=== PATIENT | female | born 1955 | race Caucasian/White ===

== ENCOUNTER → 2017-07-04 | Outpatient (CLI) | payer OTHER ==
--- NOTE | 2017-07-04 18:15 | WWHP ---
[facility] - HISTORY AND PHYSICAL DATE OF DICTATION: 07/04/2017 CHIEF COMPLAINT: The patient is here for her routine gynecologic exam and mammogram. HISTORY OF PRESENT ILLNESS: This is a 62-year-old with an LMP of 2007. The patient is without gynecologic complaints and denies any postmenopausal bleeding. PAST MEDICAL HISTORY: 1. Osteoporosis since 2003 and was on Fosamax for about 4 years until 2008 and did resume Fosamax use in June 2016. 2. History of elevated cholesterol. MEDICATIONS: 1. Multivitamin daily. 2. Calcium supplement with vitamin D one daily. 3. Fosamax 70 mg weekly. ALLERGIES: PENICILLIN. PAST SURGICAL HISTORY: 1. tubal sterilization in the past. 2. Colonoscopy 2014. 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 FAMILY HISTORY: Aunt had breast cancer. SOCIAL HISTORY: She quit smoking in 2007 and has 1 to 2 alcohol-containing drinks per month. She denies any drug use. 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 She is a . REVIEW OF SYSTEMS: She has gained 4 pounds over the last year. She denies respiratory, cardiac or GI problems. PHYSICAL EXAMINATION: Blood pressure 104/67, height 5 feet 1 inch, weight 129 pounds. BMI 24. Temperature 98.0, pulse 73. This is a well-developed, well-nourished white female who is alert and oriented x3, in no acute distress. HEENT is within normal limits. NECK: Supple without mass or thyromegaly. CHEST AND LUNGS: Clear to auscultation. HEART: Regular rate and rhythm. Breasts are without mass or discharge. Axillary exam is negative for adenopathy, back negative for CVA tenderness. ABDOMEN: Soft, nontender, without palpable masses. PELVIC EXAM: External genitalia reveal mild to moderate atrophy without lesions. Cervix and vagina reveal mild atrophy without lesions. There is no evidence of prolapse. The uterus is mid position, nongravid size and nontender. There are no palpable adnexal masses or tenderness. Rectovaginal exam is negative for mass or tenderness and is negative for occult blood. Extremities are nontender. IMPRESSION: 1. Wrisf-fie-itxa-old menopausal female with normal gynecologic exam. 2. History of osteoporosis. She restarted Fosamax about 1 year ago. PLAN: 1. Pap smear was performed. 2. Self breast examination was discussed. 3. Mammogram will be done today. 4. We discussed osteoporosis management. I have stressed the importance of adequate calcium, vitamin D and exercise. A handout was given to the patient about this. She will continue Fosamax 70 mg weekly, and a prescription for the upcoming year was given to the patient. 5. I have recommended that she increase her vitamin D intake from the amount in her calcium supplement to 2000 units daily. We have also discussed the recommended amount of calcium of 1200 to 1500 mg daily and I recommended that she try to do this mostly through her diet. 6. She will return in one year, and at that time we will plan on repeating the bone density testing. MMCARMELOL / IJN: [id number] /
--- NOTE | 2017-07-05 10:44 | MM ---
Reason for exam: screening (asymptomatic). Last mammogram was performed 1 year and 1 month ago. History: Patient is postmenopausal. Family history of breast cancer in aunt. Physical Findings: A clinical breast exam by your physician is recommended on an annual basis and results should be correlated with mammographic findings. MG Screening Mammo w CAD Bilateral CC and MLO view(s) were taken. Prior study comparison: June 08, 2016, bilateral MG screening mammo w CAD. June 02, 2015, bilateral MG screening mammo w CAD. The breast tissue is heterogeneously dense. This may lower the sensitivity of mammography. Left CC view appears most similar to . No significant changes when compared with prior studies. ASSESSMENT: Negative, BI-RAD 1 RECOMMENDATION: Routine screening mammogram of both breasts in 1 year.
== END | disposition home or self-care (01) ==
LOC: WWCWWP 15:53
PROVIDERS: ATTEND Obstetrics & Gynecology
DX: Z12.31 Encounter for screening mammogram for malignant neoplasm of breast (principal)
CPT/HCPCS: 77067

== ENCOUNTER → 2018-07-10 | Outpatient (CLI) | payer OTHER ==
[2018-07-10 16:09] VITALS: BP 126/71; PULSE 54; RESP 16; TEMP 97.6; BMI 25.0
--- NOTE | 2018-07-10 17:11 | P.HPOB ---
History of Present Illness H&P Date: 07/10/18 Chief Complaint: The patient is here for her routine gynecologic exam and mammogram. This is a 63-year-old G2 PII with an LMP of 2007. The patient is without gynecologic complaints and denies any postmenopausal bleeding. Review of Systems The patient's weight has been stable over the last year. She denies respiratory , cardiac, or G.I. problems. Past Medical History Past Medical History: No Reported History, Hyperlipidemia Additional Past Medical History / Comment(s): Osteoporosis status post 5 years use of Fosamax ending in 2008, then restarted June 2016. 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 History of Any Multi-Drug Resistant Organisms: None Reported Past Surgical History: Tubal Ligation Additional Past Surgical History / Comment(s): Colonoscopy 2014(next 10yrs per pt). Past Psychological History: No Psychological Hx Reported Smoking Status: Former smoker (Quit 2007) Past Alcohol Use History: Occasional (2 per month) Past Drug Use History: None Reported Additional History: She is a . She is not seeing anybody at this time. 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 - Past Family History Mother Family Medical History: No Reported History Additional Family Medical History / Comment(s): Aunt had breast cancer. Medications and Allergies Home Medications Medication Instructions Recorded Confirmed Type Alendronate Sodium [Fosamax] 70 mg PO WEEKLY 07/10/18 07/10/18 History Multivit with Calcium,Iron,Min 1 each PO DAILY 07/10/18 07/10/18 History [Women's Multivitamin] Allergies Allergy/AdvReac Type Severity Reaction Status Date / Time No Known Allergies Allergy Unverified 07/10/18 16:09 Exam Vital Signs Temp Pulse Resp BP Pulse Ox 07/10/18 16:02 97.6 F 54 L 16 126/71 98 Height 5'0", weight 128 pounds, BMI 25. This is a well-developed well-nourished white female who is alert and oriented times 3 in no acute distress. HEENT: Within normal limits. NECK: Supple without mass or thyromegaly. CHEST AND LUNGS: Clear to auscultation. HEART: Regular rate and rhythm. BREASTS: Are without mass or discharge. AXILLARY EXAM: Negative for adenopathy. BACK: Negative for CVA tenderness. ABDOMEN: Soft, nontender, without palpable masses. PELVIC EXAM: Normal external genitalia with mild to moderate atrophy. Cervix and vagina appear normal with mild to moderate atrophy. There is no unusual discharge. There is no evidence of prolapse. The uterus is midposition, nongravid size and nontender. There are no palpable adnexal masses or tenderness. RECTAL EXAM: rectovaginal exam is negative for mass or tenderness and is negative for occult blood. EXTREMITIES: Nontender. IMPRESSION: 1. 63 year old menopausal female with normal gynecologic exam. 2. Osteoporosis with history of 5 years use of Fosamax between 2003 and 2008, then Fosamax was restarted in June 2016. PLAN: 1. Pap smear was deferred since she had a normal one less than 2 years ago. 2. Self breast awareness was discussed with the patient. 3. Screening mammogram was done today. 4. Osteoporosis management was discussed. I have stressed the importance of adequate calcium, vitamin D and regular exercise. Recommended amounts of calcium and vitamin D were also discussed. She will continue Fosamax. The electronic prescription will be sent to [facility]. 5. She will return in one year.
--- NOTE | 2018-07-11 07:54 | BD ---
EXAMINATION TYPE: Axial Bone Density DATE OF EXAM: 07/10/2018 COMPARISON: 2016 CLINICAL HISTORY: post menopausal Height: 5' Weight: 128 FRAX RISK QUESTIONS: Secondary Osteoporosis: RISK FACTORS HISTORY OF: Family History of Osteoporosis: y Postmenopausal woman: y MEDICATIONS: Osteoporosis Medications: Which medication: Fosamax How Lon years Additional Medications: Additional History: EXAM MEASUREMENTS: Bone mineral densitometry was performed using the locr System. Bone mineral density as measured about the Lumbar spine is: ----- L1-L4(G/cm2): .0741 T Score Values are as follows: ----- L2: -4.2 ----- L3: -4.2 ----- L4: -2.4 ----- L1-L4: -3.7 Bone mineral density has: Increased 16.0 % since study of: 07/31/2015 Bone mineral density about the R hip (g/cm2): 0.708 Bone mineral density about the L hip (g/cm2): 0.746 T Score values are as follows: -----R Neck: -2.4 -----L Neck: -2.1 -----R Total: -1.8 -----L Total: -1.8 Bone mineral density has: Increased 3.2% since study of: 07/31/2015 IMPRESSION: Osteoporosis lumbar spine. Osteopenia bilateral femora. NOTE: T-SCORE=SD OF THE YOUNG ADULT MEAN.
--- NOTE | 2018-07-14 10:06 | MM ---
Reason for exam: screening (asymptomatic). Last mammogram was performed 1 year ago. History: Patient is postmenopausal. Family history of breast cancer in aunt. MG Screening Mammo w CAD Bilateral CC and MLO view(s) were taken. Prior study comparison: July 04, 2017, bilateral MG screening mammo w CAD. June 08, 2016, bilateral MG screening mammo w CAD. The breast tissue is heterogeneously dense. This may lower the sensitivity of mammography. No discrete abnormality. No significant changes when compared with prior studies. ASSESSMENT: Negative, BI-RAD 1 RECOMMENDATION: Routine screening mammogram of both breasts in 1 year.
--- NOTE | 2018-07-18 12:59 | P.PN ---
Progress Note - Text Progress Note Date: 07/18/18 OUTPATIENT FOLLOW-UP NOTE TEST(S)/RESULTS: test results from 07/10/2018 include benign mammogram and bone density test showing osteoporosis in the lumbar spine with bone density improvement of 16% in the spine and 3.2% increase in the hips. METHOD OF NOTIFICATION: the patient was notified by phone. PATIENT COMMENTS: the patient is happy to hear there was improvement in the bone density testing. DIAGNOSIS: osteoporosis with improvement on Fosamax. DISCUSSION: we will continue to have her take the Fosamax. I have also stressed the importance of getting adequate calcium, vitamin D and regular exercise. PLAN: we will plan on repeating the bone density test in 2 to 3 years. We will also consider discontinuing the Fosamax at that time.
== END | disposition home or self-care (01) ==
LOC: RADBDWWP 15:13
PROVIDERS: ATTEND Obstetrics & Gynecology
DX: Z12.31 Encounter for screening mammogram for malignant neoplasm of breast (principal); M85.851 Other specified disorders of bone density and structure, right thigh; M85.852 Other specified disorders of bone density and structure, left thigh; M81.0 Age-related osteoporosis without current pathological fracture; Z78.0 Asymptomatic menopausal state
CPT/HCPCS: 77067; 77080

== ENCOUNTER → 2019-07-16 | Outpatient (CLI) | payer OTHER ==
[2019-07-16 15:31] VITALS: BP 139/70; PULSE 60; RESP 16; TEMP 97.7
--- NOTE | 2019-07-16 16:14 | P.HPOB ---
History of Present Illness H&P Date: 07/16/19 Chief Complaint: The patient is here for her routine gynecologic exam and ma mmogram. This is a 64-year-old with an LMP of 2007. The patient is without gynecologic complaints and denies any postmenopausal bleeding. Review of Systems The patient's weight has been stable over the last year. She denies respiratory, cardiac, or G.I. problems. Past Medical History Past Medical History: No Reported History, Hyperlipidemia Additional Past Medical History / Comment(s): Osteoporosis status post 5 years use of Fosamax ending in 2008, then restarted June 2016. 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 History of Any Multi-Drug Resistant Organisms: None Reported Past Surgical History: Tubal Ligation Additional Past Surgical History / Comment(s): Colonoscopy 2014(next 10yrs per pt). Past Psychological History: No Psychological Hx Reported Smoking Status: Former smoker Past Alcohol Use History: Occasional (One per month) Additional Past Alcohol Use History / Comment(s): Quit smoking in 2007. Past Drug Use History: None Reported Additional History: She is a and is not seeing anybody at this time and is not sexually active. 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 - Past Family History Mother Family Medical History: No Reported History Additional Family Medical History / Comment(s): Aunt had breast cancer. Medications and Allergies Home Medications Medication Instructions Recorded Confirmed Type Alendronate Sodium [Fosamax] 70 mg PO WEEKLY #12 tablet 07/10/18 07/16/19 Rx Multivit with Calcium,Iron,Min 1 each PO DAILY 07/10/18 07/16/19 History [Women's Multivitamin] Calcium/Magnesium/Zinc 1 each PO DAILY 07/16/19 07/16/19 History [Zsfwkno-Wwwxkzalg-Qdxi Tablet] Cholecalciferol [Vitamin D3 (25 5,000 unit PO DAILY 07/16/19 07/16/19 History Mcg = 1000 Iu)] Vitamin B Complex 1 each PO DAILY 07/16/19 07/16/19 History Allergies Allergy/AdvReac Type Severity Reaction Status Date / Time macadamia nut oil Allergy Rash/Hives Unverified 07/16/19 15:25 Penicillins Allergy Rash/Hives Unverified 07/16/19 15:25 Exam Vital Signs Temp Pulse Resp BP Pulse Ox 07/16/19 15:27 97.7 F 60 16 139/70 100 Intake and Output 07/16/19 07/16/19 07/16/19 06:59 14:59 22:59 Other: Weight 57.153 kg Height 5 foot 1 inch, weight 126 pounds, BMI 23.8. This is a well-developed well-nourished white female who is alert and oriented times 3 in no acute distress. HEENT: Within normal limits. NECK: Supple without mass or thyromegaly. CHEST AND LUNGS: Clear to auscultation. HEART: Regular rate and rhythm. BREASTS: Are without mass or discharge. AXILLARY EXAM: Negative for adenopathy. BACK: Negative for CVA tenderness. ABDOMEN: Soft, nontender, without palpable masses. PELVIC EXAM: Normal external genitalia with mild to moderate atrophy. Cervix and vagina appear normal of mild atrophy. There is no unusual discharge. There is no evidence of prolapse. The uterus is midposition, nongravid size and nontender. There are no palpable adnexal masses or tenderness. RECTAL EXAM: Rectovaginal exam is negative for mass or tenderness and is negativ e for occult blood. EXTREMITIES: Nontender. IMPRESSION: 1. 64-year-old menopausal female with normal gynecologic exam. 2. History of osteoporosis status post 5 years use of Fosamax from 09/18, then Fosamax was restarted in 2017. PLAN: 1. Pap smear was performed. 2. Self breast awareness was discussed with the patient. 3. Screening mammogram will be done today. 4. Osteoporosis management was discussed. I have stressed the importance of adequate calcium, vitamin D and regular exercise. Recommended amounts of calcium and vitamin D were also discussed. She will continue on Fosamax. The electronic prescription will be sent to [facility]. We will plan on repeating the bone density test in 1-2 years since her last one was done in 2019. 5. She was advised to return in one year for her annual well woman exam.
--- NOTE | 2019-07-18 09:54 | MM ---
Reason for exam: screening (asymptomatic). Last mammogram was performed 1 year ago. History: Patient is postmenopausal. Family history of breast cancer in aunt. Physical Findings: A clinical breast exam by your physician is recommended on an annual basis and results should be correlated with mammographic findings. MG Screening Mammo w CAD Bilateral CC and MLO view(s) were taken. Prior study comparison: July 10, 2018, bilateral MG screening mammo w CAD. July 04, 2017, bilateral MG screening mammo w CAD. The breast tissue is heterogeneously dense. This may lower the sensitivity of mammography. No significant changes when compared with prior studies. ASSESSMENT: Negative, BI-RAD 1 RECOMMENDATION: Routine screening mammogram of both breasts in 1 year.
== END | disposition home or self-care (01) ==
LOC: WWCWWP 15:12
PROVIDERS: ATTEND Obstetrics & Gynecology
DX: Z12.31 Encounter for screening mammogram for malignant neoplasm of breast (principal)
CPT/HCPCS: 77067

== ENCOUNTER → 2020-09-01 | Outpatient (CLI) | payer OTHER ==
[2020-09-01 14:07] VITALS: BP 127/78; PULSE 79; RESP 18; TEMP 98.2
--- NOTE | 2020-09-01 15:09 | P.HPOB ---
History of Present Illness H&P Date: 09/01/20 Chief Complaint: The patient is here for her routine gynecologic exam and ma mmogram. This is a 65-year-old with an LMP of 2007. The patient is without gynecologic complaints. Review of Systems The patient's weight has been stable over the last year. She denies respiratory, cardiac, or G.I. problems. Past Medical History Past Medical History: Hyperlipidemia Additional Past Medical History / Comment(s): Osteoporosis status post 5 years use of Fosamax ending in 2008, then restarted June 2016. 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 History of Any Multi-Drug Resistant Organisms: None Reported Past Surgical History: Tubal Ligation Additional Past Surgical History / Comment(s): Colonoscopy 2014(next 10yrs per pt). Past Psychological History: No Psychological Hx Reported Smoking Status: Former smoker Past Alcohol Use History: Rare (6 per year) Additional Past Alcohol Use History / Comment(s): Quit smoking in 2007. Past Drug Use History: None Reported Additional History: She is a and is not seeing anybody at this time and is not sexually active. 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 - Past Family History Mother Family Medical History: No Reported History Additional Family Medical History / Comment(s): Aunt had breast cancer. Medications and Allergies Home Medications Medication Instructions Recorded Confirmed Type Multivit with Calcium,Iron,Min 1 each PO DAILY 07/10/18 09/01/20 History [Women's Multivitamin] Alendronate Sodium [Fosamax] 70 mg PO WEEKLY #12 tablet 07/16/19 09/01/20 Rx Calcium/Magnesium/Zinc 1 each PO DAILY 07/16/19 09/01/20 History [Wkoejpx-Kugoigvwt-Kqkt Tablet] Cholecalciferol [Vitamin D3 (25 5,000 unit PO DAILY 07/16/19 09/01/20 History Mcg = 1000 Iu)] Vitamin B Complex 1 each PO DAILY 07/16/19 09/01/20 History [place]-3 Fatty Acids/Fish Oil [Fish 1 each PO DAILY 09/01/20 09/01/20 History Oil 1,000 mg Softgel] Allergies Allergy/AdvReac Type Severity Reaction Status Date / Time macadamia nut oil Allergy Rash/Hives Unverified 09/01/20 14:03 Penicillins Allergy Rash/Hives Unverified 09/01/20 14:03 Exam Vital Signs Temp Pulse Resp BP Pulse Ox 09/01/20 14:05 98.2 F 79 18 127/78 99 Intake and Output 09/01/20 09/01/20 09/01/20 06:59 14:59 22:59 Other: Weight 56.245 kg Height 5 foot 1 inch, weight 124 pounds, BMI 23.4. This is a well-developed well-nourished white female who is alert and oriented times 3 in no acute distress. HEENT: Within normal limits. NECK: Supple without mass or thyromegaly. CHEST AND LUNGS: Clear to auscultation. HEART: Regular rate and rhythm. BREASTS: Are without mass or discharge. AXILLARY EXAM: Negative for adenopathy. BACK: Negative for CVA tenderness. ABDOMEN: Soft, nontender, without palpable masses. PELVIC EXAM: Normal external genitalia with mild atrophy. Cervix and vagina appear normal with mild atrophy. There is no unusual discharge. There is no evidence of prolapse. The uterus is midposition, nongravid size and nontender. There are no palpable adnexal masses or tenderness. RECTAL EXAM: rectovaginal exam is negative for mass or tenderness and is negative for occult blood. EXTREMITIES: Nontender. IMPRESSION: 1. 65-year-old menopausal female with normal gynecologic exam. 2. History of osteoporosis status post 5 years use of Fosamax from [id number], then Fosamax was restarted in 2017. PLAN: 1. Pap smear was deferred since she had a normal one on 07/16/2019. 2. Self breast awareness was discussed with the patient. 3. Screening mammogram will be done today. 4. Osteoporosis management was discussed. I have stressed the importance of adequate calcium, vitamin D and regular exercise. Recommended amounts of calcium and vitamin D were also discussed. She will continue to take Fosamax weekly at this time. The electronic prescription will be sent to [facility]. I have recommended that she repeat bone density testing this year and the order slip was given to the patient for this. We will reevaluate whether we can discontinue Fosamax after the bone density testing. 5. She was advised to return in one year for her annual well woman exam.
--- NOTE | 2020-09-02 10:29 | MM ---
Reason for exam: screening (asymptomatic). Last mammogram was performed 1 year and 2 months ago. History: Patient is postmenopausal. Family history of breast cancer in aunt. Physical Findings: A clinical breast exam by your physician is recommended on an annual basis and results should be correlated with mammographic findings. MG Screening Mammo w CAD Bilateral CC and MLO view(s) were taken. Prior study comparison: July 16, 2019, bilateral MG screening mammo w CAD. July 10, 2018, bilateral MG screening mammo w CAD. The breast tissue is heterogeneously dense. This may lower the sensitivity of mammography. There is no discrete abnormality. ASSESSMENT: Negative, BI-RAD 1 RECOMMENDATION: Routine screening mammogram of both breasts in 1 year.
== END | disposition home or self-care (01) ==
LOC: WWCWWP 13:44
PROVIDERS: ATTEND Obstetrics & Gynecology
DX: Z12.31 Encounter for screening mammogram for malignant neoplasm of breast (principal)
CPT/HCPCS: 77067

== ENCOUNTER → 2020-11-04 | Outpatient (CLI) | payer OTHER ==
--- NOTE | 2020-11-04 16:43 | US ---
EXAMINATION TYPE: US thyroid st tissue head/neck DATE OF EXAM: 11/04/2020 COMPARISON: NONE CLINICAL HISTORY: I88.9 Nonspecific lymphadenitis, unspecified. Patient states right side of the neck swelling intermittently after eating. Right neck not swollen at time of scan. Area of concern was sonographically evaluated. Submandibular gland visualized. No prominent masses or lesions seen. No enlarged lymph nodes in area of concern. Contralateral images taken. IMPRESSION: 1. No evidence of cyst or mass or fluid collection at the site of patient's right cervical swelling. The right submandibular gland is seen in this region.
== END | disposition home or self-care (01) ==
LOC: RADUSWWP 13:28
PROVIDERS: ATTEND Family Medicine
DX: I88.9 Nonspecific lymphadenitis, unspecified (principal)
CPT/HCPCS: 76536

== ENCOUNTER → 2021-01-01 | Outpatient (CLI) | payer MEDICARE, BC ==
--- NOTE | 2021-01-01 15:22 | FL ---
EXAMINATION TYPE: FL sialography DATE OF EXAM: 01/01/2021 COMPARISON: Ultrasound thyroid 11/04/2020 HISTORY: Right submandibular swelling The procedure is discussed with the patient, the risks, complications, benefits and alternatives, wer e discussed and any questions were answered. Informed consent was obtained. The patient is placed s upine on the fluoroscopic table, prepped and draped in the usual sterile fashion. The ostium of the right submandibular duct appear to be somewhat small relative to the left. There is difficulty in cannulation of the duct. Small amount contrast was seen which demonstrated what appear ed to be a slightly narrowed proximal portion the submandibular duct. Distally could not be visualize d well. 48 seconds of fluoroscopy provided and 5 images submitted. Due to fluoroscopic technique and difficul ties image could not be obtained. Images were only seen fluoroscopically. IMPRESSION: 1. Limited exam demonstrates suspected mild narrowing at the ostium of the right submandibular duct. Mid and distal portion of the duct not well seen.
== END | disposition home or self-care (01) ==
LOC: RADXRMAIN 12:55
PROVIDERS: ATTEND Otolaryngology
DX: R22.1 Localized swelling, mass and lump, neck (principal)
CPT/HCPCS: 70390; Q9967

== ENCOUNTER → 2021-09-07 | Outpatient (CLI) | payer MEDICARE, BC ==
[2021-09-07 15:27] VITALS: BP 122/76; PULSE 62; RESP 18; TEMP 97.9
--- NOTE | 2021-09-07 16:32 | P.HPOB ---
History of Present Illness H&P Date: 09/07/21 Chief Complaint: The patient is here for her routine gynecologic exam and ma mmogram. This is a 66-year-old with an LMP of 2007. The patient is without gynecologic complaints and denies any postmenopausal bleeding. Review of Systems The patient has gained 4 pounds over the last year. She denies respiratory, cardiac, or G.I. problems. Past Medical History Past Medical History: Hyperlipidemia Additional Past Medical History / Comment(s): Osteoporosis status post 5 years use of Fosamax ending in 2008, then restarted June 2016. 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 History of Any Multi-Drug Resistant Organisms: None Reported Past Surgical History: Tubal Ligation Additional Past Surgical History / Comment(s): Colonoscopy 2014(next 10yrs per pt). Past Psychological History: No Psychological Hx Reported Smoking Status: Former smoker Past Alcohol Use History: Rare (5 per year) Additional Past Alcohol Use History / Comment(s): Quit smoking in 2007. Past Drug Use History: None Reported Additional History: She is a and is not seeing anybody at this time and is not sexually active. 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 - Past Family History Mother Family Medical History: No Reported History Additional Family Medical History / Comment(s): Aunt had breast cancer. Medications and Allergies Home Medications Medication Instructions Recorded Confirmed Type Multivit with Calcium,Iron,Min 1 each PO DAILY 07/10/18 09/07/21 History [Women's Multivitamin] Calcium/Magnesium/Zinc 1 each PO DAILY 07/16/19 09/07/21 History [Ynrzpqj-Qesmgytwh-Bfwn Tablet] Cholecalciferol [Vitamin D3 (25 5,000 unit PO DAILY 07/16/19 09/07/21 History Mcg = 1000 Iu)] Vitamin B Complex 1 each PO DAILY 07/16/19 09/07/21 History Alendronate Sodium [Fosamax] 70 mg PO WEEKLY #12 tablet 09/01/20 09/07/21 Rx [place]-3 Fatty Acids/Fish Oil [Fish 1 each PO DAILY 09/01/20 09/07/21 History Oil 1,000 mg Softgel] Allergies Allergy/AdvReac Type Severity Reaction Status Date / Time macadamia nut oil Allergy Rash/Hives Unverified 03/22/22 15:18 Penicillins Allergy Rash/Hives Unverified 09/07/21 15:18 Exam Vital Signs Temp Pulse Resp BP Pulse Ox 09/07/21 15:23 97.9 F 62 18 122/76 100 Intake and Output 09/07/21 09/07/21 09/07/21 06:59 14:59 22:59 Other: Weight 58.06 kg Height 5 feet 1 inch, weight 128 pounds, BMI 24.2. This is a well-developed well-nourished white female who is alert and oriented times 3 in no acute distress. HEENT: Within normal limits. NECK: Supple without mass or thyromegaly. CHEST AND LUNGS: Clear to auscultation. HEART: Regular rate and rhythm. BREASTS: Are without mass or discharge. AXILLARY EXAM: Negative for adenopathy. BACK: Negative for CVA tenderness. ABDOMEN: Soft, nontender, without palpable masses. PELVIC EXAM: Normal external genitalia with mild to moderate atrophy. Cervix and vagina appear normal with mild to moderate atrophy. There is no unusual discharge. There is no evidence of prolapse. The uterus is midposition, nongravid size and nontender. There are no palpable adnexal masses or tenderne ss. RECTAL EXAM: Rectovaginal exam is negative for mass or tenderness and is negative for occult blood. EXTREMITIES: Nontender. IMPRESSION: 1. 66-year-old menopausal female with normal gynecologic exam. 2. History of osteoporosis and has been on Fosamax for the last 5 years and this is her second course. PLAN: 1. Pap smear was performed. If this is negative we will plan on discontinuing Pap smears. 2. Self breast awareness was discussed with the patient. We have also discussed symptoms associated with inflammatory breast cancer. 3. Screening mammogram will be done today. 4. Osteoporosis management was discussed. I have stressed the importance of adequate calcium, vitamin D and regular exercise. Recommended amounts of calcium and vitamin D were also discussed. She is scheduled for bone density test in October of this year. The order slip was given to the patient for this. If this remains stable, we will plan on discontinuing the alendronate since this has been about 5 years use for this course of medication. The electronic prescription for the alendronate will be sent to [facility] so the patient so she can continue this until the time when we decide she will discontinue it. 5. She has not received a Covid vaccination. She understands the CDC recommends that she get a Covid vaccination. She will consider this. 6. The patient was advised to return in 1 year for her well woman examination.
== END ==
LOC: WWCWWP 15:07
PROVIDERS: ATTEND Obstetrics & Gynecology
DX: Z12.31 Encounter for screening mammogram for malignant neoplasm of breast (principal); Z01.419 Encounter for gynecological examination (general) (routine) without abnormal findings; M81.0 Age-related osteoporosis without current pathological fracture; E78.5 Hyperlipidemia, unspecified; Z87.891 Personal history of nicotine dependence; Z80.3 Family history of malignant neoplasm of breast; Z78.0 Asymptomatic menopausal state; Z88.0 Allergy status to penicillin
CPT/HCPCS: 77063; 77067

== ENCOUNTER → 2021-10-26 | Outpatient (CLI) | payer MEDICARE, BC ==
--- NOTE | 2021-10-26 22:28 | BD ---
EXAMINATION TYPE: Axial Bone Density DATE OF EXAM: 10/26/2021 CLINICAL HISTORY: 66 years year old Female. ICD-10 CODE: Z78.0 Postmenopausal status, M81.0 Known os teoporosis Height: 5 FT Weight: 126 FRAX RISK QUESTIONS: Alcohol (3 or more units per day): NO Family History (Parent hip fracture): YES Glucocorticoids (More than 3mos): NO (Ex: prednisone, prednisolone, methylprednisolone, dexamethasone, and hydrocortisone). History of Fracture in Adulthood: NO Secondary Osteoporosis: 1. Type 1 Diabetes: NO 2. Hyperthyroidism: NO 3. Menopause before 45: NO 4. Malnutrition: NO 5. Chronic liver disease: NO Rheumatoid Arthritis: NO Current Tobacco Use: NO RISK FACTORS HISTORY OF: Surgery to Spine/Hip(right/left)/Wrist (right/left): NO Family History of Osteoporosis: YES Active: YES Diet low in dairy products/other sources of calcium: NO Postmenopausal woman: YES Take estrogen and/or progesterone medications: NO Lost more than 2 inches in height since high school: NO Frequent falls: NO Poor Health: GOOD Hyperparathyroidism: NO Adrenal Insufficiency: NO MEDICATIONS: Osteoporosis Medications: YES Which medication: FOSAMAX How Long: APPROX 5 YEARS Additional Medications: FOSAMAX Additional History: EXAM MEASUREMENTS: Bone mineral densitometry was performed using the [employer]. Bone mineral density as measured about the Lumbar spine is: ----- L1-L4(G/cm2): 0.714 T Score Values are as follows: ----- L1: -4.6 ----- L2: -4.5 ----- L3: -4.1 ----- L4: -2.8 ----- L1-L4: -3.9 Bone mineral density has: DECREASED -3.1 % since study of: 2018 Bone mineral density about the R hip (g/cm2): 0.706 Bone mineral density about the L hip (g/cm2): 0.738 T Score values are as follows: -----R Neck: -2.4 -----L Neck: -2.2 -----R Total: -2.1 -----L Total: -2.0 Bone mineral density has: DECREASED -3.6 % since study of: 2018 FRAX%s: The graph provided illustrates a 13.0 % chance for a major osteoporotic fx and a 2.7 % chance for the hips probability for fx in 10 years time. IMPRESSION: Osteoporosis (T Score less than -2.5). There is increased fracture risk and therapy is usually indicated based on age. Re-Screen 1-2 years. NOTE: T-SCORE=SD OF THE YOUNG ADULT MEAN.
--- NOTE | 2021-10-27 11:23 | P.PN ---
Progress Note - Text Progress Note Date: 10/27/21 OUTPATIENT FOLLOW-UP NOTE TEST(S)/RESULTS: Bone density test done on 10/26/2021 showed osteoporosis with a slight decrease in the lumbar spine measurements. METHOD OF NOTIFICATION: A message with this result was left on the patient's voicemail. PATIENT COMMENTS: DIAGNOSIS: Osteoporosis with slight worsening in the lumbar spine measurements on Fosamax. DISCUSSION: I will call the patient back when I am back in the office next week. We will then be of discussed options. Treatment with different medication may be considered since she has completed the another course of Fosamax for 5 years without significant improvement in the lumbar spine. PLAN: As above.
== END | disposition home or self-care (01) ==
LOC: RADBDWWP 15:55
PROVIDERS: ATTEND Obstetrics & Gynecology
DX: M81.0 Age-related osteoporosis without current pathological fracture (principal); Z78.0 Asymptomatic menopausal state
CPT/HCPCS: 77080

== ENCOUNTER → 2022-09-13 | Outpatient (CLI) | payer MEDICARE ==
[2022-09-13 09:16] VITALS: BP 158/66; PULSE 58; RESP 16; TEMP 97.9
--- NOTE | 2022-09-13 10:09 | P.HPOB ---
History of Present Illness H&P Date: 09/13/22 Chief Complaint: The patient is here for her routine gynecologic exam and ma mmogram. This is a 67-year-old with an LMP of 2007. The patient is without gynecologic complaints. Review of Systems The patient's weight has been stable over the last year. She denies respiratory, cardiac, or G.I. problems. Past Medical History Past Medical History: Hyperlipidemia Additional Past Medical History / Comment(s): Osteoporosis status post 5 years use of Fosamax ending in 2008, then restarted June 2016. 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 History of Any Multi-Drug Resistant Organisms: None Reported Past Surgical History: Tubal Ligation Additional Past Surgical History / Comment(s): Colonoscopy 2014(next 10yrs per pt). Past Psychological History: No Psychological Hx Reported Smoking Status: Former smoker Past Alcohol Use History: Rare (4 per year) Additional Past Alcohol Use History / Comment(s): Quit smoking in 2007. Past Drug Use History: None Reported Additional History: She is a and is not sexually active. 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 Medications and Allergies Home Medications Medication Instructions Recorded Confirmed Type Multivit with Calcium,Iron,Min 1 each PO DAILY 07/10/18 09/13/22 History [Women's Multivitamin] Calcium/Magnesium/Zinc 1 each PO DAILY 07/16/19 09/13/22 History [Gxkdzqa-Cswzmpbrz-Npsw Tablet] Cholecalciferol [Vitamin D3 (25 5,000 unit PO DAILY 07/16/19 09/13/22 History Mcg = 1000 Iu)] Vitamin B Complex 1 each PO DAILY 07/16/19 09/13/22 History Alendronate Sodium [Fosamax] 70 mg PO WEEKLY #12 tablet 09/01/20 09/13/22 Rx [place]-3 Fatty Acids/Fish Oil [Fish 1 each PO DAILY 09/01/20 09/13/22 History Oil 1,000 mg Softgel] Allergies Allergy/AdvReac Type Severity Reaction Status Date / Time macadamia nut oil Allergy Rash/Hives Unverified 09/13/22 09:12 Penicillins Allergy Rash/Hives Unverified 09/13/22 09:12 Exam Vital Signs Temp Pulse Resp BP Pulse Ox 09/13/22 09:13 97.9 F 58 L 16 158/66 100 Intake and Output 09/12/22 09/13/22 09/13/22 22:59 06:59 14:59 Other: Weight 58.06 kg Height 5 foot 1 inch, weight 128 pounds, BMI 24.2. This is a well-developed well-nourished white female who is alert and oriented times 3 in no acute distress. HEENT: Within normal limits. NECK: Supple without mass or thyromegaly. CHEST AND LUNGS: Clear to auscultation. HEART: Regular rate and rhythm. BREASTS: Are without mass or discharge. AXILLARY EXAM: Negative for adenopathy. BACK: Negative for CVA tenderness. ABDOMEN: Soft, nontender, without palpable masses. PELVIC EXAM: Normal external genitalia with moderate atrophy. Cervix and vagina appear normal with mild to moderate atrophy. There is no unusual discharge. There is no evidence of prolapse. The uterus is midposition, nongravid size and nontender. There are no palpable adnexal masses or tenderness. RECTAL EXAM: Rectovaginal exam is negative for mass or tenderness and is nega tive for occult blood. EXTREMITIES: Nontender. IMPRESSION: 1. 67-year-old menopausal female with normal gynecologic exam. 2. History of osteoporosis and has been on alendronate for the past 6 years. 3. Elevated blood pressure. PLAN: 1. Pap smears have been discontinued. 2. Self breast awareness was discussed with the patient. We have also discussed symptoms associated with inflammatory breast cancer. 3. Screening mammogram was done today. 4. Osteoporosis management was discussed. I have stressed the importance of adequate calcium, vitamin D and regular exercise. Recommended amounts of calcium and vitamin D were also discussed. With the severity of her vertebral bone density, we will continue alendronate until next year's bone density test at which time we will consider having a trial off. The electronic prescription for alendronate will be sent to [facility] pharmacy in [place]. 5. We have discussed her elevated blood pressure. I recommended that she check her own blood pressures at home since she does have a blood pressure cuff. She will follow up with her PCP for blood pressure elevations. 6. She was advised to return in one year for her annual well woman exam.
--- NOTE | 2022-09-14 09:43 | MM ---
Reason for Exam: Screening (asymptomatic). Last screening mammogram was performed 12 month(s) ago. Patient History: Menarche at age 13. First Full-Term at age 27. Postmenopausal. Maternal aunt had breast cancer, age 65. Risk Values: Basilia 5 year model risk: 1.9%. NCI Lifetime model risk: 6.7%. Prior Study Comparison: 07/16/2019 Bilateral Screening Mammogram, [facility]. 09/01/2020 Bilateral Screening Mammogram, [facility]. 09/07/2021 Bilateral Screening Mammogram, [facility]. Tissue Density: There are scattered fibroglandular densities. Findings: Analyzed By CAD. There is no suspicious group of microcalcifications or new suspicious mass in either breast. Overall Assessment: Negative, BI-RAD 1 Management: Screening Mammogram of both breasts in 1 year. A clinical breast exam by your physician is recommended on an annual basis and results should be correlated with mammographic findings. [facility] will attempt to contact patient to return for supplemental views and ultrasound if indicated. Electronically signed and approved by: Aristides Kenny DO
== END | disposition home or self-care (01) ==
LOC: RADMAMWWP 08:09
PROVIDERS: ATTEND Obstetrics & Gynecology
DX: Z12.31 Encounter for screening mammogram for malignant neoplasm of breast (principal); E78.5 Hyperlipidemia, unspecified; Z80.3 Family history of malignant neoplasm of breast; Z78.0 Asymptomatic menopausal state
CPT/HCPCS: 77063; 77067

== ENCOUNTER → 2023-03-27 | Outpatient (CLI) | payer MEDICARE ==
--- NOTE | 2023-03-27 20:40 | MR ---
EXAMINATION TYPE: MR brain wo con DATE OF EXAM: 03/27/2023 6:18 PM CLINICAL INDICATION:Female, 68 years old with history of G45.9 TRANSIENT CEREBRAL ISCHEMIC ATTACK, UN SPECIF; PHH, TIA, memory loss COMPARISON: None. TECHNIQUE: Multi planar, multi sequence imaging was performed through the brain including: T1, T2, In version recovery, Diffusion weighted imaging, and gradient echo imaging. No gadolinium was given. FINDINGS: Mild cerebral volume loss with proportional dilation of ventricles. The tenorio-white junctions, ventric ular system, and cisterns appear unremarkable. Scattered foci of high T2 signal intensity are seen w ithin the periventricular white matter. Midline structures show no abnormality. Diffusion-weighted im aging shows no evidence of restricted diffusion. The susceptibility weighted images do not reveal any evidence for micro-hemorrhage. The bone marrow signal is within normal limits. Paranasal sinuses and mastoid air cells: No significant paranasal sinus disease. Visualized orbits: Orbital contents are intact. IMPRESSION: 1. No evidence of intracranial mass or acute/subacute infarct. 2. Nonspecific white matter changes, likely secondary to small vessel ischemic disease.
== END | disposition home or self-care (01) ==
LOC: RADMRIMAIN 17:28
PROVIDERS: ATTEND Family Medicine
DX: G45.9 Transient cerebral ischemic attack, unspecified (principal); R90.82 White matter disease, unspecified; Z86.73 Personal history of transient ischemic attack (TIA), and cerebral infarction without residual deficits
CPT/HCPCS: 70551

== ENCOUNTER → 2023-10-31 | Outpatient (CLI) | payer MEDICARE ==
--- NOTE | 2023-10-31 20:46 | BD ---
EXAMINATION TYPE: Axial Bone Density DATE OF EXAM: 10/31/2023 CLINICAL HISTORY: 68 years old Female. ICD-10 CODE: M85.80 BONE DENSITY DISORDERS Height: 60 Weight: 130.4 FRAX RISK QUESTIONS: Alcohol (3 or more units per day): no Family History (Parent hip fracture): mother Glucocorticoids (More than 3mos): no (Ex: prednisone, prednisolone, methylprednisolone, dexamethasone, and hydrocortisone). History of Fracture in Adulthood: no Secondary Osteoporosis: 1. Type 1 Diabetes: no 2. Hyperthyroidism: no 3. Menopause before 45: no 4. Malnutrition: no 5. Chronic liver disease: no Rheumatoid Arthritis: no Current Tobacco Use: no RISK FACTORS HISTORY OF: Hip Fracture (Right/Left): no Spine Fracture: no History of Wrist Fracture: no Surgery to Spine/Hip(right/left)/Wrist (right/left): no MEDICATIONS: Thyroid Medications: no Osteoporosis Medications: fosamax once a week How Long: past 20 years EXAM MEASUREMENTS: Bone mineral densitometry was performed using the [employer] System. Bone mineral density as measured about the Lumbar spine is: ----- L1-L4(G/cm2): 0.706 T Score Values are as follows: ----- L1: -4.3 ----- L2: -4.5 ----- L3: -4.1 ----- L4: -3.3 ----- L1-L4: -4.0 Z Score Values are as follows: ----- L1: -2.4 ----- L2: -2.6 ----- L3: -2.2 ----- L4: -1.5 ----- L1-L4: -2.1 Bone mineral density has: decreased -1.1 % since study of: 10/26/2021 Bone mineral density about the R hip (g/cm2): 0.810 Bone mineral density about the L hip (g/cm2): 0.814 T Score values are as follows: -----R Neck: -1.9 -----L Neck: -1.7 -----R Total: -1.6 -----L Total: -1.5 Z Score values are as follows: -----R Neck: -0.2 -----L Neck: 0.0 -----R Total: 0.0 -----L Total: 0.0 Bone mineral density has: increased 8.6 % since study of: 10/26/2021 FRAX%s: The graph provided illustrates a 18.9 % chance for a major osteoporotic fx and a 2.9% chance for the hips probability for fx in 10 years time. IMPRESSION: Osteopenia (T Score between -2.5 and -1). There is slightly increased risk of fracture and the patient may be considered for treatment. Re-Screen 2-5 years. NOTE: T-SCORE=SD OF THE YOUNG ADULT MEAN.
--- NOTE | 2023-11-01 13:39 | P.PN ---
Progress Note - Text Progress Note Date: 11/01/23 OUTPATIENT FOLLOW-UP NOTE TEST(S)/RESULTS: Bone density test done on 10/31/2023 shows osteoporosis with improvement in the hip scores and minimal change from the lumbar spine measurements. METHOD OF NOTIFICATION: A message with these results was left on the patient's voicemail on 11/01/2023. PATIENT COMMENTS: DIAGNOSIS: Osteoporosis. DISCUSSION: I will call the patient back at a later time to confirm she has been taking her medications for her osteoporosis and to decide if changes should be m tristen. PLAN: As above. Mammogram from 10/31/2023 is pending
--- NOTE | 2023-11-01 19:20 | MM ---
Reason for Exam: Screening (asymptomatic). Last mammogram was performed 1 year(s) and 2 month(s) ago. Patient History: Menarche at age 13. First Full-Term at age 27. Postmenopausal. Maternal aunt had breast cancer, age 65. Risk Values: Basilia 5 year model risk: 1.9%. NCI Lifetime model risk: 6.4%. Prior Study Comparison: 09/01/2020 Bilateral Screening Mammogram, [facility]. 09/07/2021 Bilateral Screening Mammogram, [facility]. 09/13/2022 Bilateral MG 3D screening mammo w/cad, [facility]. Tissue Density: There are scattered areas of fibroglandular density. Findings: Analyzed By CAD. There is no suspicious group of microcalcifications or new suspicious mass in either breast. Overall Assessment: Negative, BI-RAD 1 Management: Screening Mammogram of both breasts in 1 year. . Patient should continue monthly self-breast exams. A clinical breast exam by your physician is recommended on an annual basis. This exam should not preclude additional follow-up of suspicious palpable abnormalities. Note on Basilia scores and lifetime risk: 1. A Basilia score greater than 3% is considered moderate risk. If this is the case, consider specialist referral to assess eligibility for a risk reducing agent. 2. If overall lifetime risk for the development of breast cancer is 20% or higher, the patient may qualify for future screening with alternating mammogram and breast MRI. Electronically signed and approved by: Rachna Crabtree M.D. Radiologist
== END | disposition home or self-care (01) ==
LOC: RADMAMWWP 14:37
PROVIDERS: ATTEND Obstetrics & Gynecology
DX: Z12.31 Encounter for screening mammogram for malignant neoplasm of breast (principal); M81.0 Age-related osteoporosis without current pathological fracture; M85.89 Other specified disorders of bone density and structure, multiple sites; Z78.0 Asymptomatic menopausal state; Z80.3 Family history of malignant neoplasm of breast
CPT/HCPCS: 77063; 77067; 77080

== ENCOUNTER → 2024-11-05 | Outpatient (CLI) | payer MEDICARE ==
[2024-11-05 08:29] VITALS: BP 141/59; PULSE 53; RESP 16; TEMP 98
--- NOTE | 2024-11-05 08:38 | P.HPOB ---
History of Present Illness H&P Date: 11/05/24 Chief Complaint: The patient is here for her routine gynecologic exam and ma mmogram. This is a 69-year-old G2, P2 with an LMP of 2007. The patient is without gynecologic complaints. The patient has used Fosamax or 2 separate courses each lasting 5 years. She stopped it in 2023. She was offered a referral to a osteoporosis specialist, Dr. Shaikh in [place], but she is declining this. Review of Systems The patient's weight has been stable over the last year. She denies respiratory, cardiac, or G.I. problems. Past Medical History Past Medical History: Hyperlipidemia Additional Past Medical History / Comment(s): Osteoporosis status post 5 years use of Fosamax ending in 2008, then restarted June 2016 for an additional 5 years. 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 History of Any Multi-Drug Resistant Organisms: None Reported Past Surgical History: Tubal Ligation Additional Past Surgical History / Comment(s): Colonoscopy 2014(next 10yrs per pt). Past Psychological History: No Psychological Hx Reported Smoking Status: Former smoker Past Alcohol Use History: Rare (1 drink per month.) Additional Past Alcohol Use History / Comment(s): Quit smoking in 2007. Past Drug Use History: None Reported Additional History: She is a and is not sexually active. She retired. 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 - Past Family History Mother Family Medical History: No Reported History Additional Family Medical History / Comment(s): Aunt had breast cancer. Medications and Allergies Home Medications Medication Instructions Recorded Confirmed Type Multivit with Calcium,Iron,Min 1 each PO DAILY 07/10/18 09/13/22 History [Women's Multivitamin] Calcium/Magnesium/Zinc 1 each PO DAILY 07/16/19 09/13/22 History [Heakdbp-Mlzhfszxh-Giub Tablet] Cholecalciferol [Vitamin D3 (25 5,000 unit PO DAILY 07/16/19 09/13/22 History Mcg = 1000 Iu)] Vitamin B Complex 1 each PO DAILY 07/16/19 09/13/22 History [place]-3 Fatty Acids/Fish Oil [Fish 1 each PO DAILY 09/01/20 09/13/22 History Oil 1,000 mg Softgel] Rosuvastatin [Crestor] 10 mg PO DAILY 11/05/24 11/05/24 History Allergies Allergy/AdvReac Type Severity Reaction Status Date / Time macadamia nut oil Allergy Rash/Hives Unverified 11/05/24 08:11 Penicillins Allergy Rash/Hives Unverified 11/05/24 08:11 Exam Vital Signs Temp Pulse Resp BP Pulse Ox 11/05/24 08:15 98 F 53 L 16 141/59 100 Intake and Output 11/04/24 11/05/24 11/05/24 22:59 06:59 14:59 Other: Weight 57.606 kg Height 5 feet 0 inches, weight 127 pounds, BMI 24.8. This is a well-developed well-nourished white female who is alert and oriented times 3 in no acute distress. HEENT: Within normal limits. NECK: Supple without mass or thyromegaly. CHEST AND LUNGS: Clear to auscultation. HEART: Regular rate and rhythm. BREASTS: Are without mass or discharge. AXILLARY EXAM: Negative for adenopathy. BACK: Negative for CVA tenderness. ABDOMEN: Soft, nontender, without palpable masses. PELVIC EXAM: Normal external genitalia with mild atrophy. Cervix and vagina appear normal with mild atrophy. There is no unusual discharge. There is no evidence of prolapse. The uterus is midposition, nongravid size and nontender. There are no palpable adnexal masses or tenderness. RECTAL EXAM: Rectovaginal exam is negative for mass or tenderness and is negative for occult blood. EXTREMITIES: Nontender. IMPRESSION: 1. 69-year-old menopausal female with normal gynecologic exam. 2. History of osteoporosis status post alendronate use for a total of approximately 10 years. She discontinued this about 1 year ago. 3. Mildly elevated blood pressure. PLAN: 1. Pap smears have been discontinued. 2. Self breast awareness was discussed with the patient. We have also discussed symptoms associated with inflammatory breast cancer. 3. Screening mammogram will be done today. 4. Osteoporosis management was discussed. I have stressed the importance of adequate calcium, vitamin D and regular exercise. Recommended amounts of calcium and vitamin D were also discussed. Will plan on doing another bone density test in 1 year. She was again offered a referral to an osteoporosis specialist, Dr. Shaikh in [place]. The patient again has declined this for possible use of other medications for osteoporosis. 5. We have discussed her elevated blood pressure. I have recommended that she check her own blood pressures on a regular basis and follow-up with her PCP for blood pressure elevations. 6. Colorectal cancer screening has been done with Cologuard testing through her PCP. 7. She was advised to return in one year for her annual well woman exam.
--- NOTE | 2024-11-05 08:54 | MM ---
Reason for Exam: Screening (asymptomatic). Last screening mammogram was performed 12 month(s) ago. Patient History: Menarche at age 13. First Full-Term at age 27. Postmenopausal. Maternal aunt had breast cancer, age 65. Risk Values: Basilia 5 year model risk: 1.9%. NCI Lifetime model risk: 6.2%. Prior Study Comparison: 09/07/2021 Bilateral Screening Mammogram, [facility]. 09/13/2022 Bilateral MG 3D screening mammo w/cad, [facility]. 10/31/2023 Bilateral MG 3D screening mammo w/cad, [facility]. Tissue Density: There are scattered areas of fibroglandular density. Findings: Analyzed By CAD. Right breast: There is no suspicious group of microcalcifications or new suspicious mass. Left breast: There is no suspicious group of microcalcifications or new suspicious mass. Overall Assessment: Negative, BI-RAD 1 Management: Screening Mammogram of both breasts in [address] [facility] will attempt to contact patient to return for supplemental views and ultrasound if indicated. Patient should continue monthly self-breast exams. A clinical breast exam by your physician is recommended on an annual basis. This exam should not preclude additional follow-up of suspicious palpable abnormalities. Note on Basilia scores and lifetime risk: 1. A Basilia score greater than 3% is considered moderate risk. If this is the case, consider specialist referral to assess eligibility for a risk reducing agent. 2. If overall lifetime risk for the development of breast cancer is 20% or higher, the patient may qualify for future screening with alternating mammogram and breast MRI. [facility], , 11/05/2024 8:46 AM. Electronically signed and approved by: Aristides Kenny DO
== END ==
LOC: WWCWWP 07:50
PROVIDERS: ATTEND Obstetrics & Gynecology
DX: Z01.419 Encounter for gynecological examination (general) (routine) without abnormal findings (principal); Z12.31 Encounter for screening mammogram for malignant neoplasm of breast; M81.0 Age-related osteoporosis without current pathological fracture; R03.0 Elevated blood-pressure reading, without diagnosis of hypertension; Z78.0 Asymptomatic menopausal state; Z87.891 Personal history of nicotine dependence; Z88.0 Allergy status to penicillin; Z91.018 Allergy to other foods
CPT/HCPCS: 77063; 77067